=== PATIENT | female | born 1980 | race Caucasian/White ===

== ENCOUNTER 2017-02-25 20:39 | Emergency (ER) | payer MEDICAID, OTHER ==
[~2017-02-25] VITALS: Ht 154.9 cm; Wt 50.3 kg
[2017-02-25 21:07] VITALS: BP 113/74
--- NOTE | 2017-02-25 22:39 | NUR ---
Patient to bed 10.
--- NOTE | 2017-02-25 23:07 | NUR ---
37Y/F PT. PRESENTS TO ED WITH C/O ABDOMINAL PAIN X 1 DAY. PT. STATES PAIN STATES AFTER TAKING SLEEPING PILL, ALSO STATES N/V. AAO X4, AMBULATORY WITH STEADY GAIT. RESPIRATIONS ROOM AIR, EVEN AND UNLABORED. ABDOMEN FLAT, NON TENDER, ACTIVE BS X4. C/O PAIN 5/10. NO N/V/D AT THIS TIME. ER MD MADE AWARE OF PT. STATUS.
--- NOTE | 2017-02-25 23:50 | NUR ---
Patient being evaluated by DR. Champagne bedside.
[2017-02-26 00:29] VITALS: BP 127/73
--- NOTE | 2017-02-26 00:29 | NUR ---
Patient discharged with v/s stable. D/C WITH OUT INSTRUCTION, MADE AWARE. Ambulatory with steady gait. All questions addressed prior to discharge. Advised to follow up with PMD.
== END 2017-02-26 00:29 | disposition home or self-care (01) ==
LOC: MED 20:39
DX: T45.0X1A Poisoning by antiallergic and antiemetic drugs, accidental (unintentional), initial encounter (principal); Y92.89 Other specified places as the place of occurrence of the external cause
CPT/HCPCS: 81025; 99283